=== PATIENT | female | born 1935 | race Two or more races ===

== ENCOUNTER 2019-12-10 11:06 | Outpatient (CLI) | payer MEDICARE, OTHER | END 2019-12-10 23:59 | disposition home or self-care (01) | LOC: CARD 11:06 | PROVIDERS: ATTEND Internal Medicine Interventional Cardiology | DX: I82.403 Acute embolism and thrombosis of unspecified deep veins of lower extremity, bilateral (principal); R60.0 Localized edema | CPT/HCPCS: 93970-TC ==

== ENCOUNTER 2020-03-28 18:57 | Inpatient (IN) | payer MEDICARE, OTHER ==
[~2020-03-28] VITALS: Ht 152.4 cm; Wt 57.6 kg
--- NOTE | 2020-03-28 19:04 | NUR ---
BIB From Home "told to come in for admission/Lung infection/empyemam, pt aaox4, -sob, nad noted, placed on monitor, vss, pending er provider beltran
[2020-03-28 19:24] LABS: BASOPHILS # (AUTO) 0.1 /CMM (0.0-0.2); BASOPHILS % (AUTO) 0.6 % (0.0-2.0); EOSINOPHILS % (AUTO) 0.3 % (0.0-6.0); HEMATOCRIT 39 % (33-45); HEMOGLOBIN 12.8 g/dL (11.5-14.8); LYMPHOCYTES # (AUTO) 1.2 /CMM (0.8-4.8); MEAN CORPUSCULAR HGB CONC 33 g/dl (31.0-36.0); MEAN CORPUSCULAR VOLUME 94 fL (82-100); MONOCYTES # (AUTO) 0.7 /CMM (0.1-1.30); MONOCYTES % (AUTO) 5.5 % (2.0-12.0); NEUTROPHILS # (AUTO) 10.9 /CMM (1.8-8.9); NEUTROPHILS % (AUTO) 84.6 % (43.0-81.0); PLATELET COUNT (AUTO) 462 /CMM (150-450); RED BLOOD CELL COUNT(AUTO) 4.15 MIL/uL (4.0-5.2); WHITE BLOOD COUNT (AUTO) 12.9 K/uL (4.3-11.0)
[2020-03-28] MEDS ORDERED: PIPERACILLIN /TAZOBACTAM 3.375 G in IV D5W 50 ML IV ONE (19:30)
[2020-03-28] MEDS ORDERED: VANCOMYCIN 1 GM in IV D5W 250 ML IV ONE (19:30)
[2020-03-28 19:50] LABS: CALCIUM, SERUM 9.2 mg/dL (8.5-10.1); CARBON DIOXIDE 26 mmol/L (21-32); CHLORIDE 101 mmol/L (98-107); GLUCOSE 117 mg/dL (74-106); SODIUM SERUM 138 mmol/L (136-145); UREA NITROGEN, BLOOD 22 mg/dL (7-18)
[2020-03-28 19:53] LABS: ALANINE AMINOTRANSFERASE 39 U/L (12-78); ALBUMIN 2.4 g/dL (3.4-5.0); ALKALINE PHOSPHATASE 119 U/L (46-116); ASPARTATE AMINOTRANSFERASE 47 U/L (15-37); BILIRUBIN,DIRECT 0.1 mg/dL (0.0-0.2); BILIRUBIN,TOTAL 0.5 mg/dL (0.2-1.0); TOTAL PROTEIN, SERUM 7.7 g/dL (6.4-8.2)
[2020-03-28] MEDS ORDERED: MORPHINE SULFATE INJ 2 MG/ML DISP.SYRIN IV ONE (20:00)
[2020-03-28] MEDS ORDERED: MORPHINE SULFATE INJ 4 MG/ML DISP.SYRIN ONE (20:00)
[2020-03-28] MEDS ORDERED: LEVO25TA7 PO (20:30)
[2020-03-28] MEDS ORDERED: PANT40TA2 PO (20:30)
[2020-03-28] MEDS ORDERED: ZOLP10TA2 PO (20:30)
[2020-03-28] MEDS ORDERED: FOLI0.4T2 PO (20:30)
[2020-03-28] MEDS ORDERED: PALB75CA PO (20:30)
[2020-03-28] MEDS ORDERED: ANAS1TAB50 NG (20:30)
[2020-03-28] MEDS ORDERED: AMLO5TAB4 PO (20:30)
[2020-03-28] MEDS ORDERED: PREG50CA PO (20:30)
[2020-03-28] MEDS ORDERED: METO100T14 PO (20:30)
[2020-03-28] MEDS ORDERED: BUPR100T6 PO (20:30)
--- NOTE | 2020-03-28 21:10 | NUR ---
pt is allergic to cephalaxin, called to verify, unknown reaction. per dr. wilfredo banks to give and watch for any allergic rxn
--- NOTE | 2020-03-28 21:15 | NUR ---
report given to jesus tello charge nurse for liza; pt will be transported to 3rd floor
[2020-03-28] MEDS ORDERED: PIPERACILLIN /TAZOBACTAM 3.375 G VIAL IV ONE (21:17)
--- NOTE | 2020-03-28 21:41 | NUR ---
pt tranpsorted to 3rd floor
[2020-03-28 21:45] VITALS: BP 148/72
--- NOTE | 2020-03-28 23:01 | NUR ---
MS/TELE/RN DR. LIMON CALLED, ADMISSION ORDERS RECEIVED. CARRIED OUT.
[2020-03-28] MEDS ORDERED: LEVOFLOXACIN 500 MG /D5W 100ML 500 MG in PREMIX 1 EA IV ONE (23:30)
[2020-03-28] MEDS ORDERED: LEVOFLOXACIN 500 MG /D5W 100ML 500 MG in PREMIX 1 EA IV SCH (23:30)
--- NOTE | 2020-03-29 00:29 | NUR ---
MS/TELE/RN RECEIVED PATIENT FROM [facility] BY VI AT AROUND 3905. PATIENT WAS AWAKE, ALERT, ORIENTED, COMFORTABLE, NO SIGNS OF DISTRESS NOTED. PATIENT IS VERY HARD OF HEARING, UNABLE TO OBTAIN INFORMATION. ADMISSION INFORMATION WAS TAKEN FROM THE ER NOTES AND CHART OF THE PATIENT. MADE PATIENT COMFORTABLE IN BED, PHYSICAL ASSESSMENT WAS DONE, PHOTOS WERE TAKEN AND PUT IN CHART. FALL PRECAUTIONS PER PROTOCOL INSTITUTED. WILL MONITOR.
[2020-03-29] MEDS ORDERED: LEVOFLOXACIN 500 MG /D5W 100ML 100 ML IV ONE (00:56)
--- NOTE | 2020-03-29 03:36 | NUR ---
MS/TELE/RN PATIENT IS SLEEPING AT THIS TIME, APPEAR COMFORTABLE, NO SIGNS OF DISTRESS NOTED, CALL LIGHT IN REACH. WILL CONTINUE TO MONITOR.
--- NOTE | 2020-03-29 05:55 | NUR ---
MS/TELE/RN PATIENT IS STILL SLEEPING, APPEAR COMFORTABLE, NO SIGNS OF DISTRESS NOTED, CALL LIGHT IN REACH, ALL NEEDS ATTENDED AT THIS TIME, WILL CONTINUE TO MONITOR.
[2020-03-29 06:44] LABS: BASOPHILS % (AUTO) 0.1 % (0.0-2.0); EOSINOPHILS % (AUTO) 0.3 % (0.0-6.0); HEMATOCRIT 36 % (33-45); LYMPHOCYTES # (AUTO) 0.9 /CMM (0.8-4.8); LYMPHOCYTES % (AUTO) 8.4 % (20.0-44.0); MEAN CORPUSCULAR HGB CONC 33 g/dl (31.0-36.0); MEAN CORPUSCULAR VOLUME 95 fL (82-100); MONOCYTES # (AUTO) 0.8 /CMM (0.1-1.30); MONOCYTES % (AUTO) 7.8 % (2.0-12.0); NEUTROPHILS # (AUTO) 8.5 /CMM (1.8-8.9); NEUTROPHILS % (AUTO) 83.4 % (43.0-81.0); PLATELET COUNT (AUTO) 350 /CMM (150-450); RED BLOOD CELL COUNT(AUTO) 3.83 MIL/uL (4.0-5.2); WHITE BLOOD COUNT (AUTO) 10.2 K/uL (4.3-11.0)
[2020-03-29 06:54] LABS: CALCIUM, SERUM 8.4 mg/dL (8.5-10.1); CREATININE 0.8 mg/dL (0.6-1.3); POTASSIUM 3.7 mmol/L (3.5-5.1)
--- NOTE | 2020-03-29 07:20 | NUR ---
ms rn received on bed, awake,alert,oriented x4,not in any form of distress, respirations even and ulabored,no sob noted.denies pain at thistime
[2020-03-29] MEDS: LEVOTHYROXINE SODIUM 50 MCG TABLET PO SCH (08:30)
--- NOTE | 2020-03-29 08:45 | NUR ---
ms rn was seen by dr. umaña w/ order made and carried out.
[2020-03-29] MEDS: FOLIC ACID 1 MG TABLET PO SCH (09:00)
[2020-03-29] MEDS: PANTOPRAZOLE 40 MG TABLET.DR PO SCH (09:00)
[2020-03-29] MEDS: PREGABALIN 25 MG CAPSULE PO SCH ×3 (09:00→18:11)
[2020-03-29] MEDS: AMLODIPINE BESYLATE 5 MG TABLET PO SCH (09:00)
[2020-03-29] MEDS: METOPROLOL TARTRATE 50 MG TABLET PO SCH ×2 (09:00→21:59)
[2020-03-29] MEDS: buPROPion SR 150 MG TABLET.ER PO SCH (09:00)
[2020-03-29] MEDS: ANASTROZOLE 1 MG TABLET PO SCH (09:00)
--- NOTE | 2020-03-29 09:00 | NUR ---
ms rn npo ,held meds at this time, patient will be having us guided thoracentesis today.
[2020-03-29] MEDS ORDERED: FEE PK DOSING 1 MIN EA MC ONE (09:43)
--- NOTE | 2020-03-29 10:00 | NUR ---
ms rn was seen by dr. tesfaye,all needs attended.
--- NOTE | 2020-03-29 10:13 | NUR ---
WOUND CARE CONSULT: PT REFUSED SKIN ASSESSMENT BUT ALLOWED ASSESSMENT OF FEET ONLY. RT FOOT NOTED TO HAVE DUSKY COLOR WITH PURPLE DISCOLORATION TO RT LATERAL ANKLE WITH EDEMA. LEFT FOOT HAS SLIGHT DUSKY COLOR WITH PLANTAR CALLUS, PRESENT ON ADMISSION. CURRENT RADHA SCORE IS 15. RECOMMENDATIONS MADE FOR SKIN PROTECTION AND DISCUSSED WITH NURSING STAFF. WILL SEE PRN. TUCKER IN AGREEMENT WITH PLAN OF CARE.
[2020-03-29] MEDS ORDERED: Z GUARD REMEDY 2 OZ OINT TP PRN (10:30)
[2020-03-29] MEDS: Z GUARD REMEDY 2 OZ OINT TP SCH (10:30)
[2020-03-29] MEDS: MORPHINE SULFATE INJ 4 MG/ML DISP.SYRIN IV PRN (11:07)
--- NOTE | 2020-03-29 12:00 | NUR ---
ms rn thoracentesis done w/ only 40ml taken.
[2020-03-29] MEDS: VANCOMYCIN 1 GM in IV D5W 250 ML IV SCH (15:22)
[2020-03-29 16:00] VITALS: BP 130/70
[2020-03-29] MEDS: ZOLPIDEM TARTRATE 10 MG TABLET PO SCH (18:11)
--- NOTE | 2020-03-29 18:48 | NUR ---
ms rn on bed, no distress noted.
--- NOTE | 2020-03-29 19:47 | NUR ---
ms procedures nurse initial notes received report from am nurse and checked pt she is sleeping at this time per am nurse Imelda she already given the sleep meds for tonight as schedule. Respiration even and non-labored not in any distress noted. Heplock patent and intact. kept her warm and comfortable at all times. place call light at reach. will continue monitoring.
[2020-03-29 20:00] VITALS: BP 129/81
[2020-03-29] MEDS: LEVOFLOXACIN 250 MG /D5W 50 ML 250 MG in PREMIX 1 EA IV SCH (23:08)
[2020-03-30] VITALS (7 sets, daily range): BP systolic 89–99; BP diastolic 47–68
[2020-03-30] MEDS: MORPHINE SULFATE INJ 4 MG/ML DISP.SYRIN IV PRN ×3 (01:21→18:40)
--- NOTE | 2020-03-30 01:21 | NUR ---
MS RN NOTES PAIN MANAGEMENT C/O GENERALIZED ARTHRITIS PAIN 10/10 ON PAIN SCALE.MEDICATED WITH MORPHINE 4MG IV ORDERED FOR SEVERE PAIN.WILL MONITOR FOR RELIEF
--- NOTE | 2020-03-30 06:44 | NUR ---
MS RN NOTES PAIN MANAGEMENT C/O GENERALIZED PAIN DUE TO ARTHRITIS 06/12 ON PAIN SCALE THIS TIME.MEDICATED WITH MORPHINE 4MG IV ORDERED AND PER PATIENT REQUEST.
[2020-03-30 06:51] LABS: CALCIUM, SERUM 8.8 mg/dL (8.5-10.1); CARBON DIOXIDE 21 mmol/L (21-32); CHLORIDE 98 mmol/L (98-107); CREATININE 1.5 mg/dL (0.6-1.3); GLUCOSE 132 mg/dL (74-106); POTASSIUM 4.1 mmol/L (3.5-5.1); SODIUM SERUM 133 mmol/L (136-145); UREA NITROGEN, BLOOD 20 mg/dL (7-18)
[2020-03-30] MEDS: LEVOTHYROXINE SODIUM 50 MCG TABLET PO SCH (06:55)
--- NOTE | 2020-03-30 06:56 | NUR ---
ms brian clssukhi notes morphine given zena IVP by another nurse as ordered per pt requested for her generalize pain 08/12. .stable zena the night and slept well. no signs of any distress noted. all due meds given . still waiting for vanco trough result. endorse to am nurse for continuity of care. will continue monitoring. place call light at reach.
--- NOTE | 2020-03-30 08:00 | NUR ---
MS RN OPENING NOTES Received Patient awake and resting in bed. A/O x 4. VS stable with no acute distress. Breathing even and unlabored on 3LPM via NC with no respiratory distress. Patient stated tolerable mild pain on thoracentesis site. Provided comfort measures. 20g PIV on RAC clean, intact, patent and flushing well. Safety precautions in place. Bed locked and set to lowest position with side rails x 2 up. All needs rendered at this time. Call light within reach. Will continue to monitor.
[2020-03-30] MEDS: ANASTROZOLE 1 MG TABLET PO SCH (08:38)
[2020-03-30] MEDS: FOLIC ACID 1 MG TABLET PO SCH (08:38)
[2020-03-30] MEDS: METOPROLOL TARTRATE 50 MG TABLET PO SCH ×2 (08:39→21:00)
[2020-03-30] MEDS: PANTOPRAZOLE 40 MG TABLET.DR PO SCH (08:39)
[2020-03-30] MEDS: PREGABALIN 25 MG CAPSULE PO SCH ×3 (08:39→16:39)
[2020-03-30] MEDS: AMLODIPINE BESYLATE 5 MG TABLET PO SCH (08:39)
[2020-03-30] MEDS: buPROPion SR 150 MG TABLET.ER PO SCH (08:39)
[2020-03-30] MEDS: Z GUARD REMEDY 2 OZ OINT TP SCH (08:41)
[2020-03-30] MEDS: VANCOMYCIN 1 GM in IV D5W 250 ML IV SCH (08:59)
[2020-03-30] MEDS: TRAMADOL HCL 50 MG TABLET PO PRN (16:40)
--- NOTE | 2020-03-30 17:15 | NUR ---
MS RN NOTES Obtained Pleural Fluid Lab results from [facility] in [facility] Medical Records. Per Cait TUCKER request, notified Cait TUCKER of lab results at this time. Placed lab results in chart. Patient in stable condition. Will continue to monitor.
--- NOTE | 2020-03-30 18:24 | NUR ---
MS RN CLOSING NOTES Patient resting in bed. A/O x 3. VS stable with no acute distress. Breathing even and unlabored on 3LPM via NC with no respiratory distress. Patient stated generalized moderate pain. Provided comfort measures. Will endorse to oncoming shift. 20g PIV on RAC clean, intact, patent and flushing well. Safety precautions in place. Bed locked and set to lowest position with side rails x 2 up. All needs rendered at this time. Call light within reach. Will endorse plan of care to oncoming shift.
[2020-03-30] MEDS: ZOLPIDEM TARTRATE 10 MG TABLET PO SCH ×2 (19:02→21:23)
--- NOTE | 2020-03-30 20:55 | NUR ---
RN NOTES: PAGED [facility] REGARDING PT'S LOW BP, DR BEJARANO BEER MERCHANT, AWAITING FOR CALL BACK
--- NOTE | 2020-03-30 21:00 | NUR ---
RN NOTES: PT A/O X3 (ABLE TO STATE HER NAME, AND WHERE SHE IS), HOWEVER UNABLE TO RECALL MONTH DAY AND YEAR. ON 3L OXYGEN VIA NC.
--- NOTE | 2020-03-30 21:19 | NUR ---
RN NOTES/NEPHRO MD RETURN CALL: SPOKE WITH DR BEJARANO, RELAYED SITUATION,LOW BP, MANUAL BP HIGHEST OBTAIN IS 91/58 HR 74, PER MD TELEPHONE ORDER RECEIVE TO GIVE 500ML NORMAL SALINE BOLUS, HOLD LOPRESSOR DOSE DUE TO DECREASE BLOOD PRESSURE, PARAMETER FOR LOPRESSOR HOLD FOR SBP <105, INFORMED MD PT INSISTING TO GET HER SLEEPING PILL/AMBIEN, PER MD DO NOT GIVE AMBIEN TONIGHT. ALL ORDERS READ BACK VERIFIED AND CARRIED OUT.
[2020-03-30] MEDS ORDERED: IV NS 0.9% 500 ML IV ONE (21:30)
--- NOTE | 2020-03-30 22:46 | NUR ---
rn notes/post bolus vs: attached latest vs post bolus, pt a/o x3, remains on 3l oxygen via nc, respiration even and unlabored, provided with cranberry juice and pudding, will recheck vs again in an hour Addendum: 03/30/20 at 2247 by JOSELYN BIRMINGHAM RN Amended: Links added.
[2020-03-30] MEDS: LEVOFLOXACIN 250 MG /D5W 50 ML 250 MG in PREMIX 1 EA IV SCH (22:51)
[2020-03-31] VITALS: BP 102/54
--- NOTE | 2020-03-31 | NUR ---
rn notes/vs 1hr post bolus: attached pt's latest vs, pt responsive, a/o x3, remains on 3L oxygen via nc respirations even and unlabored, iv access remains patent and flushing well, on hl, pt denies any head ache, dizziness, or light headedness, denies any discomfort at this time, will continue monitoring pt. Addendum: 03/31/20 at 5874 by JOSELYN BIRMINGHAM RN Amended: Links added.
--- NOTE | 2020-03-31 06:44 | NUR ---
end of shift report: received report form karlos tello last night at 192. s/p thoracentesis on 03/29. pt remains a/o x3 (able to state name, and place where she is), remains on 3l oxygen via nc spo2 ranging 92-94%. iv access remains patent and flushing well, on hl, no s/s of iv infiltration noted. ble kept offloaded on pillows, no scd applied as pt noted to have ble edema +2. Lopressor scheduled at 2100 was held by md due to low bp, also Ambien held per md order. pt received 500ml ns bolus for managing hypotension. result of fluid analysis from [facility] relayed to dr umaña by day rn yesterday. am care and complete linen change provided to pt. vs remains stable, needs attended, safety precautions for fall remains engaged, call light in reach, will endorse to day rn Immaculate for continuity of care.
[2020-03-31 06:52] LABS: CALCIUM, SERUM 8.3 mg/dL (8.5-10.1); CARBON DIOXIDE 22 mmol/L (21-32); CHLORIDE 97 mmol/L (98-107); GLUCOSE 98 mg/dL (74-106); POTASSIUM 4.3 mmol/L (3.5-5.1); SODIUM SERUM 130 mmol/L (136-145); UREA NITROGEN, BLOOD 28 mg/dL (7-18)
--- NOTE | 2020-03-31 06:56 | NUR ---
rn notes: medication ambien 10mg tab returned to [facility], cosigned/witnessed by omer smallwood. (the said medication was pulled out by omer everett from day shift, but not administered at night as dose was held by md due to low bp, spoked with pharmacist how to return it as med was not pulled pout under my name, per pharm okay to return it as long they as there is another rn as witness.
--- NOTE | 2020-03-31 07:05 | NUR ---
MS RN OPENING NOTES RECEIVED PT IN BED AWAKE AT THIS TIME, AOX3. NO SOB NOTED, NO S/S OF ANY ACUTE DISTRESS NOTED AT THIS TIME, NO C/O PAIN. PT ON 3LPM O2 VIA NC. RESPIRATIONS EVEN AND UNLABORED WITH EQUAL RISE AND FALL IN CHEST. IV ACCESS TO LFA G#22, INTACT AND PATENT. BLE +2 NOTED. SAFETY MEASURES IN PLACE, BED IN LOWEST LOCKED POSITION, HOB ELEVATED TO SEMI FOWLERS POSITION, SIDE RAILS UP, CALL LIGHT WITHIN REACH. WILL CONTINUE TO MONITOR
[2020-03-31 08:00] VITALS: BP 86/46
[2020-03-31] MEDS ORDERED: VANCOMYCIN 1 GM in IV D5W 250 ML IV SCH (08:00)
[2020-03-31] MEDS: LEVOTHYROXINE SODIUM 50 MCG TABLET PO SCH (08:24)
--- NOTE | 2020-03-31 08:29 | NUR ---
PT HAS VANCOMYCIN 1GM IV Q24HRS SCHEDULED AT THIS TIME, PT VANCO TROUGH LEVEL IS 20 OF 03/30/20. BRYCE FROM PHARMACY WAS MADE AWARE, PER BRYCE, HOLD VANCO FOR NOW.
--- NOTE | 2020-03-31 08:33 | NUR ---
PT HAS VANCOMYCIN 1GM IV Q24HRS SCHEDULED AT THIS TIME, PT VANCO TROUGH LEVEL IS 20 OF 03/30/20. BRYCE FROM PHARMACY WAS MADE AWARE, PER BRYCE, HOLD VANCO FOR NOW. ORDERS CARRIED OUT. WILL CONTINUE TO MONITOR
[2020-03-31] MEDS: PANTOPRAZOLE 40 MG TABLET.DR PO SCH (08:39)
[2020-03-31] MEDS: PREGABALIN 25 MG CAPSULE PO SCH ×3 (08:39→16:57)
[2020-03-31] MEDS: FOLIC ACID 1 MG TABLET PO SCH (08:39)
[2020-03-31] MEDS: buPROPion SR 150 MG TABLET.ER PO SCH (08:39)
[2020-03-31] MEDS: METOPROLOL TARTRATE 50 MG TABLET PO SCH (08:45)
[2020-03-31] MEDS: ANASTROZOLE 1 MG TABLET PO SCH (08:45)
[2020-03-31] MEDS: Z GUARD REMEDY 2 OZ OINT TP SCH (08:46)
[2020-03-31] MEDS: AMLODIPINE BESYLATE 5 MG TABLET PO SCH (08:46)
--- NOTE | 2020-03-31 09:00 | NUR ---
PT SODIUM LEVEL IS 130, BP 86/[address] BRIECNO MADE AWARE. NO NEW ORDERS AT THIS TIME. WILL CONTINUE TO MONITOR
--- NOTE | 2020-03-31 10:28 | NUR ---
ABA, MAPLE SUGAR MAKER REQUESTED THAT PT'S FAMILY BRING IN HOME MEDICATION (IBRANCE 75MG PO DAILY). WAS MADE AWARE AT THIS TIME AND WILL BE BRINGING IN MEDICATION BY 1700PM. WILL CONTINUE CARE
--- NOTE | 2020-03-31 11:20 | NUR ---
PT C/O O NAUSEA AT THIS TIME. DR BEJARANO MADE AWARE. NO NEW ORDERS AT THIS TIME, WILL CONTINUE TO MONITOR
[2020-03-31 11:57] LABS: BASOPHILS % (AUTO) 0.3 % (0.0-2.0); EOSINOPHILS % (AUTO) 0.2 % (0.0-6.0); HEMATOCRIT 33 % (33-45); HEMOGLOBIN 10.8 g/dL (11.5-14.8); LYMPHOCYTES # (AUTO) 0.9 /CMM (0.8-4.8); LYMPHOCYTES % (AUTO) 10.1 % (20.0-44.0); MEAN CORPUSCULAR HGB CONC 33 g/dl (31.0-36.0); MEAN CORPUSCULAR VOLUME 95 fL (82-100); MONOCYTES # (AUTO) 0.6 /CMM (0.1-1.30); MONOCYTES % (AUTO) 6.5 % (2.0-12.0); NEUTROPHILS # (AUTO) 7.7 /CMM (1.8-8.9); NEUTROPHILS % (AUTO) 82.9 % (43.0-81.0); PLATELET COUNT (AUTO) 426 /CMM (150-450); RED BLOOD CELL COUNT(AUTO) 3.48 MIL/uL (4.0-5.2); WHITE BLOOD COUNT (AUTO) 9.3 K/uL (4.3-11.0)
[2020-03-31] MEDS ORDERED: ONDANSETRON HCL/PF 4 MG/2 ML VIAL IVP PRN (12:00)
[2020-03-31 12:05] LABS: MAGNESIUM 2.1 mg/dL (1.8-2.4); PHOSPHORUS 3.9 mg/dL (2.5-4.9)
[2020-03-31 12:16] LABS: THYROID STIMULATING HORMONE 3.723 uIU/mL (0.358-3.74); URIC ACID 6.6 mg/dL (2.6-7.2)
[2020-03-31] MEDS: IV NS 0.9% 1,000 ML IV PRN (13:28)
--- NOTE | 2020-03-31 13:50 | NUR ---
PATIENT'S BROUGHT IN PATIENT'S HOME MEDICATION IBRIANCE 75MG PO DAILY PER PHARMACY REQUEST. MEDICATION NOT IN ORIGINAL CONTAINER. MEDICATION HANDED TO BEAU, ASSOCIATE PRODUCT MANAGER. PER BEAU, SHE WILL VERIFY MEDICATION. CHARGE NURSE MOSHE, WAS MADE AWARE. PATIENT'S ALSO BROUGHT IN A COPY OF PATIENT'S DURABLE POWER OF INSURANCE ADJUSTER FILED IN PATIENT'S CHARGE. VENETIAN BLIND MACHINE OPERATOR AND CHARGE NURSE MADE AWARE. WILL CONTINUE WITH PLAN OF CARE.
[2020-03-31 16:00] VITALS: BP 102/64
[2020-03-31] MEDS: ZOLPIDEM TARTRATE 10 MG TABLET PO SCH (18:07)
--- NOTE | 2020-03-31 19:05 | NUR ---
MS RN CLOSING ING NOTES PT IN BED AWAKE AT THIS TIME. PT REMAINED STABLE THROUGHOUT SHIFT. PT KEPT CLEAN AND DRY. ALL CARE, MEDICATIONS AND TREATMENT PROVIDED ANTICIPATED AND PER ORDER. PT REPOSITION Q2HRS, PRN AND PER PROTOCOL. IV ACCESS TO LFA G#22 INTACT, PATENT AND RUNNING 0.9NS@100ML/HR. NO SOB NOTED, NO S/S OF ANY ACUTE DISTRESS NOTED AT THIS TIME. ASPIRATION AND SAFETY PRECAUTIONS IN PLACE, BED IN LOWEST LOCKED POSITION, HOB ELEVATED TO SEMI FOWLERS POSITION, SIDE RAILS UP, CALL LIGHT WITHIN REACH. WILL ENDORSE TO MOBILE TESTER NURSE FOR JUS
--- NOTE | 2020-03-31 19:15 | NUR ---
MS RN OPENING NOTES PATIENT SLEEPING IN BED, EASY TO AWAKEN. A/O X3. ON 3L NC. NO S/S OF SOB OR PAIN NOTED. IV PRESENT ON LEFT FA, SIZE 22, INTACT & PATENT, NS RUNNING AT 100 ML/HR. SAFETY MEASURES IN PLACE AND PATIENT'S NEEDS MET. BED LOCKED, ALARM ON, SIDE RAILS X2, CALL LIGHT WITHIN REACH. WILL CONTINUE TO MONITOR.
[2020-03-31 20:05] VITALS: BP 110/41
[2020-03-31] MEDS: LEVOFLOXACIN 250 MG /D5W 50 ML 250 MG in PREMIX 1 EA IV SCH (23:00)
--- NOTE | 2020-03-31 23:30 | NUR ---
MS RN NOTES CALLED [facility] REGARDING SCHEDULED IVPB LEVAQUIN AND PATIENT'S RENAL FUNCTION. PER PHARMACIST TECH, PATIENT'S CREATININE CLEARANCE IS <10 (9.67) AND RECOMMENDATION IS TO HOLD ANTIBIOTIC AND CHANGE FREQUENCY TO Q48H.
--- NOTE | 2020-03-31 23:48 | NUR ---
MS RN NOTES DR. BEJARANO CALLED AND MADE AWARE OF PHARMACY'S RECOMMENDATION REGARDING ANTIBIOTIC LEVAQUIN. PER CARLEE, OK TO HOLD MEDICATION TONIGHT AND CHANGE FREQUENCY TO Q48H. ALSO RECEIVED ORDERS FOR STRAIGHT CATH TO COLLECT URINE. ORDERS READ BACK AND VERIFIED.
--- NOTE | 2020-04-01 00:40 | NUR ---
MS RN NOTES STRAIGHT CATH PERFORMED ON PATIENT PER DR. BEJARANO'S ORDERS FOR URINALYSIS. 300 ML OF USAMA URINE COLLECTED.
[2020-04-01] MEDS: IV NS 0.9% 1,000 ML IV PRN ×2 (01:07→15:26)
[2020-04-01 05:22] LABS: CREATININE, URINE 130.8 MG/DL (30.0-125.0); URINE TOTAL PROTEIN 73.6 mg/dL (0-11.9)
[2020-04-01 06:41] LABS: BASOPHILS % (AUTO) 0.5 % (0.0-2.0); EOSINOPHILS % (AUTO) 0.2 % (0.0-6.0); HEMATOCRIT 30 % (33-45); HEMOGLOBIN 9.6 g/dL (11.5-14.8); LYMPHOCYTES # (AUTO) 1.1 /CMM (0.8-4.8); MEAN CORPUSCULAR HGB CONC 33 g/dl (31.0-36.0); MEAN CORPUSCULAR VOLUME 95 fL (82-100); MONOCYTES # (AUTO) 0.7 /CMM (0.1-1.30); MONOCYTES % (AUTO) 8.6 % (2.0-12.0); NEUTROPHILS # (AUTO) 6.5 /CMM (1.8-8.9); NEUTROPHILS % (AUTO) 77.7 % (43.0-81.0); PLATELET COUNT (AUTO) 368 /CMM (150-450); RED BLOOD CELL COUNT(AUTO) 3.11 MIL/uL (4.0-5.2); WHITE BLOOD COUNT (AUTO) 8.4 K/uL (4.3-11.0)
[2020-04-01 06:45] LABS: CREATINE KINASE, TOTAL 223 U/L (26-192)
[2020-04-01 06:54] LABS: CALCIUM, SERUM 7.4 mg/dL (8.5-10.1); CARBON DIOXIDE 25 mmol/L (21-32); CHLORIDE 101 mmol/L (98-107); CREATININE 4.1 mg/dL (0.6-1.3); GLUCOSE 128 mg/dL (74-106); POTASSIUM 4.3 mmol/L (3.5-5.1); SODIUM SERUM 136 mmol/L (136-145); UREA NITROGEN, BLOOD 34 mg/dL (7-18)
[2020-04-01] MEDS ORDERED: VANCOMYCIN 500 MG in IV D5W 100 ML IV SCH ×2 (07:00→20:00)
[2020-04-01 07:05] LABS: ALANINE AMINOTRANSFERASE 31 U/L (12-78); ALBUMIN 1.8 g/dL (3.4-5.0); ALKALINE PHOSPHATASE 90 U/L (46-116); ASPARTATE AMINOTRANSFERASE 43 U/L (15-37); BILIRUBIN,TOTAL 0.2 mg/dL (0.2-1.0); CALCIUM, SERUM 7.6 mg/dL (8.5-10.1); CARBON DIOXIDE 25 mmol/L (21-32); CHLORIDE 99 mmol/L (98-107); CREATININE 4.4 mg/dL (0.6-1.3); GLUCOSE 128 mg/dL (74-106); MAGNESIUM 1.9 mg/dL (1.8-2.4); PHOSPHORUS 4.9 mg/dL (2.5-4.9); POTASSIUM 4.2 mmol/L (3.5-5.1); SODIUM SERUM 134 mmol/L (136-145); TOTAL PROTEIN, SERUM 5.9 g/dL (6.4-8.2); UREA NITROGEN, BLOOD 35 mg/dL (7-18)
--- NOTE | 2020-04-01 07:26 | NUR ---
MS RN CLOSING NOTES PATIENT SLEEPING IN BED, EASY TO AWAKEN. A/O X3. ON 3L NC. NO S/S OF SOB OR PAIN NOTED. IV REMAINS INTACT & PATENT. SAFETY MEASURES IN PLACE AND PATIENT'S NEEDS MET. WILL ENDORSE TO DAY SHIFT NURSE PLAN OF CARE.
--- NOTE | 2020-04-01 07:53 | NUR ---
MS RN OPENING NOTES RECEIVED PATIENT IN BED, ASLEEP. PATIENT IS ON OXYGEN THERAPY AT 3 LPM VIA NASAL CANNULA; BREATHING IS EVEN AND UNLABORED; NO SOB NOTED AT THIS TIME. NO S/S OF PAIN SUCH MOANING, FACIAL GRIMACING OR GUARDING. LFA IV ACCESS G # 22 PRESENT AND INTACT INFUSING NS AT 100 MLS/HR. SAFETY PRECAUTIONS IN PLACE; BED IN LOW POSITION AND LOCKED, RAILS UP X2, CALL LIGHT WITHIN REACH.. WILL CONTINUE TO MONITOR PATIENT.
[2020-04-01 08:00] VITALS: BP 121/68
[2020-04-01] MEDS: LEVOTHYROXINE SODIUM 50 MCG TABLET PO SCH (09:20)
[2020-04-01] MEDS: PANTOPRAZOLE 40 MG TABLET.DR PO SCH (09:20)
[2020-04-01] MEDS: ANASTROZOLE 1 MG TABLET PO SCH (09:20)
[2020-04-01] MEDS: FOLIC ACID 1 MG TABLET PO SCH (09:20)
[2020-04-01] MEDS: PREGABALIN 25 MG CAPSULE PO SCH ×3 (09:20→17:31)
[2020-04-01] MEDS: buPROPion SR 150 MG TABLET.ER PO SCH (09:20)
[2020-04-01] MEDS: Z GUARD REMEDY 2 OZ OINT TP SCH (09:21)
[2020-04-01] MEDS: METOPROLOL TARTRATE 25 MG TABLET PO SCH ×3 (10:00→21:21)
[2020-04-01] MEDS: ENOXAPARIN SODIUM 30 MG/0.3 ML DISP.SYRIN SQ SCH (10:30)
--- NOTE | 2020-04-01 11:59 | NUR ---
MS RN NOTES PATIENT WANTS TO SEE HER DOCTORS AND RECEIVE A PLAN FROM THEM. ALSO SHE WANTS TO KNOW FROM THE DOCTOR WHY SHE IS BEING PRESCRIBED ENOXAPARIN EVEN AFTER TEACHING WAS PROVIDED. SHE IS NOT HAPPY THAT FOR A FEW DAYS NOW SHE HEARS SAME THINGS OVER AND OVER AGAIN.
[2020-04-01] MEDS: TRAMADOL HCL 50 MG TABLET PO PRN (15:23)
[2020-04-01 16:00] VITALS: BP 137/59
--- NOTE | 2020-04-01 16:24 | NUR ---
MS SLADE NOTES FURTHER PATIENT CARE HANDED OUT TO YANY BALDERRAMA. Addendum: 04/01/20 at 1625 by DREW BOURNE RN MS SLADE NOTES FURTHER PATIENT CARE HANDED OUT TO YANY JASSO.
[2020-04-01] MEDS ORDERED: LEVOFLOXACIN (500MG) 500 MG TABLET PO SCH (18:00)
--- NOTE | 2020-04-01 18:39 | NUR ---
MS RN NOTES PATIENT IN BED RESTING NO SOB OR ACUTE DISTRESS NOTED. ALL DUE MEDICATIONS ADMINISTERED. ALL NEEDS MET. NO ACUTE CHANGES NOTED. WILL ENDORSE CARE TO PM SHIFT.
--- NOTE | 2020-04-01 19:45 | NUR ---
MS RN NOTES RECEIVED ON BED,ON RIGHT SIDE POSITION,BREATHING REGULAR,NOT IN ANY FORM OF DISTRESS.O2 2LNC IN USED TO KEEP O2 SAT ABOVE 90%.IVF NS AT 100ML/HR RATE,SITE PATENT.PER REPORT,SHE ONLY VOIDED ONCE ON DIAPER,WITH SMALL AMOUNT OF URINE.BLADDER SCAN RENDERED AND THERE WAS ONLY 83ML OF URINE,BLADDER NON DISTENDED.REPOSITION PER PROTOCOL.CALL LIGHT IN REACH,NEEDS ANTICIPATED.
[2020-04-01 20:00] VITALS: BP 143/77
[2020-04-01 20:14] VITALS: BP 143/77
--- NOTE | 2020-04-01 21:00 | NUR ---
MS RN NOTES BP 143/77.PULSE-99,DOSE HELD PER MD ORDER,DOSE WASTED,ACCIDENTALLY OPENED.
[2020-04-01] MEDS ORDERED: LEVOFLOXACIN (250MG) 250 MG TABLET PO SCH (23:00)
[2020-04-02] MEDS: IV NS 0.9% 1,000 ML IV PRN (01:03)
--- NOTE | 2020-04-02 04:00 | NUR ---
MS RN NOTES NOTED BLADDER DISTENDED,BLADDER SCAN SHOWS 386 ML OF URINE IN THE BLADDER.PATIENT UNABLE TO VOID,C/O PAIN 5/10 OM PAIN SCALE.WILL MEDICATE.
[2020-04-02] MEDS: TRAMADOL HCL 50 MG TABLET PO PRN ×2 (04:47→16:22)
--- NOTE | 2020-04-02 04:47 | NUR ---
MS RN NOTES PAIN MANAGEMENT NEPHRO TOPPIECE CUTTER FOR DR BEJARANO,DR PUGH WAS PAGE.AWAITING TO CALL BACK
--- NOTE | 2020-04-02 05:00 | NUR ---
MS RN NOTES ST CATH DONE AND OBTAINED 400ML OF URINE
[2020-04-02 06:22] LABS: BASOPHILS % (AUTO) 0.1 % (0.0-2.0); EOSINOPHILS % (AUTO) 0.2 % (0.0-6.0); HEMATOCRIT 30 % (33-45); HEMOGLOBIN 9.8 g/dL (11.5-14.8); LYMPHOCYTES # (AUTO) 0.5 /CMM (0.8-4.8); LYMPHOCYTES % (AUTO) 7.5 % (20.0-44.0); MEAN CORPUSCULAR HGB CONC 33 g/dl (31.0-36.0); MEAN CORPUSCULAR VOLUME 95 fL (82-100); MONOCYTES # (AUTO) 0.6 /CMM (0.1-1.30); MONOCYTES % (AUTO) 8.3 % (2.0-12.0); NEUTROPHILS % (AUTO) 83.9 % (43.0-81.0); PLATELET COUNT (AUTO) 385 /CMM (150-450); RED BLOOD CELL COUNT(AUTO) 3.15 MIL/uL (4.0-5.2); WHITE BLOOD COUNT (AUTO) 7.1 K/uL (4.3-11.0)
--- NOTE | 2020-04-02 06:30 | NUR ---
MS RN NOTES ON BED, A/O X 2-3.PAIN MANAGEMENT EFFECTIVE.REPOSITION PER PROTOCOL.VITAL SIGNS STABLE.IN NO ACUTE DISTRESS.WILL ENDORSE TO DAY NURSE FOR JUS.
[2020-04-02 06:41] LABS: CALCIUM, SERUM 7.4 mg/dL (8.5-10.1); CARBON DIOXIDE 22 mmol/L (21-32); CHLORIDE 100 mmol/L (98-107); CREATININE 4.9 mg/dL (0.6-1.3); GLUCOSE 90 mg/dL (74-106); MAGNESIUM 1.9 mg/dL (1.8-2.4); PHOSPHORUS 5.6 mg/dL (2.5-4.9); POTASSIUM 4.9 mmol/L (3.5-5.1); SODIUM SERUM 134 mmol/L (136-145); UREA NITROGEN, BLOOD 40 mg/dL (7-18)
[2020-04-02 08:00] VITALS: BP 124/72
[2020-04-02] MEDS: PREGABALIN 25 MG CAPSULE PO SCH ×3 (08:08→16:15)
[2020-04-02] MEDS: LEVOTHYROXINE SODIUM 50 MCG TABLET PO SCH (08:08)
[2020-04-02] MEDS: ANASTROZOLE 1 MG TABLET PO SCH (08:08)
[2020-04-02] MEDS: FOLIC ACID 1 MG TABLET PO SCH (08:08)
[2020-04-02] MEDS: PANTOPRAZOLE 40 MG TABLET.DR PO SCH (08:08)
[2020-04-02] MEDS: buPROPion SR 150 MG TABLET.ER PO SCH (08:09)
[2020-04-02] MEDS: METOPROLOL TARTRATE 25 MG TABLET PO SCH ×3 (08:30→18:00)
[2020-04-02] MEDS: ENOXAPARIN SODIUM 30 MG/0.3 ML DISP.SYRIN SQ SCH (08:31)
[2020-04-02] MEDS: Z GUARD REMEDY 2 OZ OINT TP SCH (09:24)
--- NOTE | 2020-04-02 11:31 | NUR ---
RN NOTE Patient straight cathed, 100cc out. Urine sample sent to lab.
--- NOTE | 2020-04-02 12:20 | NUR ---
RN NOTE METOPROLOL held per .
[2020-04-02 12:34] LABS: APPEARANCE,URINE CLEAR (CLEAR); BILIRUBIN,URINE NEGATIVE (NEGATIVE); BLOOD, URINE TRACE-INTA Ery/uL (NEGATIVE); COLOR,URINE YELLOW (YELLOW); KETONES,URINE NEGATIVE (NEGATIVE); LEUKOCYTE ESTERASE ,URINE NEGATIVE (NEGATIVE); NITRITE, URINE NEGATIVE (NEGATIVE); PROTEIN,URINE NEGATIVE (NEGATIVE); UGLUCOSE NEGATIVE (NEGATIVE); UROBILINOGEN,URINE 0.2 EU/dL (0.2)
[2020-04-02 12:54] LABS: EOSINOPHIL,URINE None Seen
[2020-04-02 16:00] VITALS: BP 123/65
--- NOTE | 2020-04-02 19:57 | NUR ---
RN CLOSING NOTE Patient is resting in bed, A/O x2-3 showing no signs of acute distress or SOB, saturaing >95% on 3L NC. Patient has no IV line. paged, awaiting for response. Denies any c/o pain nor discomfort at this time. Bed in lowest position, locked. Bed alarm on. Call light within reach. In no apparent distress.
--- NOTE | 2020-04-02 19:58 | NUR ---
RN NOTES PATIENT RESTING COMFORTABLY IN BED. 3L/MIN VIA NC. NO S/S OF ACUTE RESPIRATORY DISTRESS. DENIES ANY C/O PAIN NOR DISCOMFORT AT THIS TIME. BED IN LOWEST POSITION, LOCKED. BED ALARM ON. CALL LIGHT WITHIN REACH. IN NO APPARENT DISTRESS. SAFETY MEASURES IN PLACE. NO IV ACCESS AT THIS TIME. WILL CALL DR. MIKE BEJARANO TO OBTAIN ORDER FOR MIDLINE INSERTION. ALL NEEDS ANTICIPATED WILL CONTINUE TO MONITOR ACCORDINGLY.
--- NOTE | 2020-04-02 20:10 | NUR ---
MS RN NOTES Awaiting for MD call back for IV access order due to multiple attempts unsuccessful. Endorsed to oncoming shift.
[2020-04-02 20:24] VITALS: BP 120/71
--- NOTE | 2020-04-02 20:32 | NUR ---
RN NOTE Paged [facility] for midline orders. Awaiting for call back. Will endorse to retail shift manager.
[2020-04-02 20:45] VITALS: BP 120/71
--- NOTE | 2020-04-02 21:40 | NUR ---
RN NOTES OK TO INSERT MIDLINE PER DR. JOSETTE PUGH MD. NURSING SUPERVISORY AIR INTERCEPT CONTROLLER JANICE AWARE, NO DEFINITE TIME WHEN PICC NURSE WILL ARRIVE. WILL MONITOR.
[2020-04-03] MEDS: METOPROLOL TARTRATE 25 MG TABLET PO SCH ×5 (00:39→23:49)
[2020-04-03] MEDS: TRAMADOL HCL 50 MG TABLET PO PRN ×2 (02:05→09:20)
[2020-04-03 06:10] LABS: BASOPHILS % (AUTO) 0.4 % (0.0-2.0); EOSINOPHILS % (AUTO) 0.4 % (0.0-6.0); HEMATOCRIT 30 % (33-45); HEMOGLOBIN 9.7 g/dL (11.5-14.8); LYMPHOCYTES # (AUTO) 0.7 /CMM (0.8-4.8); LYMPHOCYTES % (AUTO) 11.2 % (20.0-44.0); MEAN CORPUSCULAR HGB CONC 33 g/dl (31.0-36.0); MEAN CORPUSCULAR VOLUME 95 fL (82-100); MONOCYTES # (AUTO) 0.5 /CMM (0.1-1.30); NEUTROPHILS # (AUTO) 4.9 /CMM (1.8-8.9); PLATELET COUNT (AUTO) 358 /CMM (150-450); RED BLOOD CELL COUNT(AUTO) 3.11 MIL/uL (4.0-5.2); WHITE BLOOD COUNT (AUTO) 6.1 K/uL (4.3-11.0)
[2020-04-03 06:15] LABS: CALCIUM, SERUM 7.8 mg/dL (8.5-10.1); CARBON DIOXIDE 23 mmol/L (21-32); CHLORIDE 98 mmol/L (98-107); CREATININE 6.1 mg/dL (0.6-1.3); GLUCOSE 105 mg/dL (74-106); POTASSIUM 5.3 mmol/L (3.5-5.1); SODIUM SERUM 131 mmol/L (136-145); UREA NITROGEN, BLOOD 46 mg/dL (7-18)
--- NOTE | 2020-04-03 06:26 | NUR ---
RN NOTES ALL NEEDS ATTENDED AND MET,ABLE TO REST AND SLEPT AT INTERVALS, PATIENT DID NOT COMPLAIN OF DISTENDED BLADDER, REFUSED STRAIGHT CATH AT THIS TIME, ASSESSED, DIAPER SLIGHTLY WET. REPOSITIONED FOR COMFORT METOPROLOL GIVEN SCHEDULED, BP 123/70, HR 85. ALL NEEDS ANTICIPATED, NO IV ACCESS WILL ENDORSE TO AM NURSE FOR CONTINUITY OF CARE AND FOLLOW UP MIDLINE INSERTION. PATIENT IS RESTING COMFORTABLY AT THIS TIME.
[2020-04-03 07:08] LABS: PTH, INTACT 211 pg/mL (15-65)
--- NOTE | 2020-04-03 07:28 | NUR ---
MS RN OPENING NOTES RECEIVED PATIENT IN BED, AWAKE, A/O X3. PATIENT IS ON OXYGEN THERAPY AT 3LPM; BREATHING IS EVEN AND UNLABORED; NO SOB PRESENT AT THIS TIME. NO COMPLAINS OF PAIN. PATIENT IS MISSING IV ACCESS. PER MOTOR SCOOTER MECHANIC NURSE AWAITING MIDLINE INCRETION. PER PATIENT MULTIPLE ATTEMPTS HAVE BEEN DONE AND SHE JUST REFUSED ANY MORE ATTEMPTS FOR PERIPHERAL IV. ARMS WITH MULTIPLE BRUISES. SAFETY PRECAUTIONS IN PLACE; BED IN LOW POSITION AND LOCKED, RAILS UP X2, CALL LIGHT WITHIN REACH. WILL CONTINUE TO MONITOR PATIENT.
[2020-04-03] MEDS ORDERED: VANCOMYCIN 500 MG in IV D5W 100 ML IV SCH (08:00)
[2020-04-03] MEDS: PANTOPRAZOLE 40 MG TABLET.DR PO SCH (08:50)
[2020-04-03] MEDS: PREGABALIN 25 MG CAPSULE PO SCH ×3 (08:50→17:51)
[2020-04-03] MEDS: LEVOTHYROXINE SODIUM 50 MCG TABLET PO SCH (08:50)
[2020-04-03] MEDS: FOLIC ACID 1 MG TABLET PO SCH (08:51)
[2020-04-03] MEDS: buPROPion SR 150 MG TABLET.ER PO SCH (08:51)
[2020-04-03] MEDS: ANASTROZOLE 1 MG TABLET PO SCH (08:52)
[2020-04-03] MEDS: Z GUARD REMEDY 2 OZ OINT TP SCH (08:52)
[2020-04-03] MEDS: ENOXAPARIN SODIUM 30 MG/0.3 ML DISP.SYRIN SQ SCH (09:00)
[2020-04-03 09:08] VITALS: BP 116/56
--- NOTE | 2020-04-03 09:59 | NUR ---
MS RN NOTES PATIENT STATES DIFFICULTY BREATHING. O2 INCREASED TO 5 LPM VIA NASAL CANNULA, SATURATING AT 92%. CHARGE NURSE AND MD NOTIFIED. WILL CONTINUE TO MONITOR.
[2020-04-03] MEDS ORDERED: VANCOMYCIN 500 MG in IV D5W 100 ML IV PRN (11:00)
[2020-04-03] MEDS: HEPARIN SODIUM, PORCINE 5000 UNITS/1 ML VIAL SQ SCH (16:30)
--- NOTE | 2020-04-03 16:31 | NUR ---
MS RN NOTES PATIENT JUST HAD AN HD CATH PLACED. SKIPPING THE DOSE DUE TO FRESH HD INSERTION. WILL CONTINUE TO MONITOR.
[2020-04-03 16:58] VITALS: BP 110/46
--- NOTE | 2020-04-03 18:50 | NUR ---
MS RN CLOSING NOTES PATIENT IN BED, ASLEEP. PATIENT IS ON OXYGEN THERAPY AT 5LPM; BREATHING IS EVEN AND UNLABORED; NO SOB PRESENT AT THIS TIME. NO COMPLAINS OF PAIN AT THE MOMENT. THROUGHOUT THE DAY PAIN TREATED WITH PRN MEDICATION. PATIENT IS MISSING IV ACCESS; STILL AWAITING MIDLINE INSERTION. PATIENT HAD AN HD CATH INSERTED TODAY FOR HEMODIALYSIS. ALL NEEDS ATTENDED TO THROUGHOUT THE DAY. SAFETY PRECAUTIONS REMAIN IN PLACE; BED IN LOW POSITION AND LOCKED, RAILS UP X2, CALL LIGHT WITHIN REACH. WILL ENDORSE TO ELECTRIC MOTORMAN NURSE.
[2020-04-03 20:00] VITALS: BP 126/62
--- NOTE | 2020-04-03 20:00 | NUR ---
MS/RN OPENING NOTES RECEIVED PATIENT IN BED, RESTING COMFORTABLY, ON OXYGEN VIA NC AT 5 LITER, TO TAPER IT TOLERATED PER MD INSTRUCTION, PATIENT RESPIRATIONS EVEN AND UNLABORED. MID LINE ORDER AWAITING FOR PICC LINE NURSE. ALERT X2, REQUIRE ASSISTANCE WITH ADLS, OBSERVED WITH DISCOLORATION IN UPPER ARMS, HD CATHETER ON RU LEG, MONITORING FOR ANY CHANGES, FOR HD ETIENNE AM , CONSENT SIGNED, WILL MONITOR AND CONTINUE CARE. RECEIVED ENDORSEMENT FROM AM RN FOR JUS.
--- NOTE | 2020-04-03 20:30 | NUR ---
MS/RN NOTES BLADDER DISTENDED, RETENTION OF URINE IDENTIFIED VIA BLADDER SCAN OF 479 ML, WITH ORDER FOR URINE CATHETER AND TO CLARIFY IF MD WILL ORDER HENRIQUEZ CATHETER INSTEAD IN AM. PATIENT AGREED AND TOLERATED PROCEDURE.
--- NOTE | 2020-04-03 22:59 | NUR ---
PER MD PETER TO USE STRAIGHT CATHETHER AT THIS TIME FOR BLADDER RETENTION TO AVOID ANY TYPE OF INFECTION.
[2020-04-04] MEDS: METOPROLOL TARTRATE 25 MG TABLET PO SCH ×4 (05:18→23:01)
--- NOTE | 2020-04-04 06:50 | NUR ---
309-1 MS/RN NOTES PATIENT ABLE TO SLEEP DURING THE NIGHT, ON OXYGEN VIA NC AT 5 LITER WITH OXYGENATION OF 94%, ALERT, ORIENTED X3 ABLE TO VERBALIZE NEEDS, ATTENDED TO ALL NEEDS, KEPT COMFORTABLE. BED LOCKED, CALL LIGHTS WITHIN REACH. MONITORED URINE OUTPUT AND ORAL INTAKE. WILL ENDORSE TO AM RN FOR JUS.
[2020-04-04 07:06] LABS: *SPE A/G RATIO 0.6 (0.7-1.7); *SPE ALBUMIN 1.8 g/dL (2.9-4.4); *SPE ALPHA-1-GLOBULIN 0.5 g/dL (0.0-0.4); *SPE BETA GLOBULIN 1.1 g/dL (0.7-1.3); *SPE GLOBULIN, TOTAL 3.2 g/dL (2.2-3.9); *SPE M-SPIKE Not Observed g/dL (Not Observed); *SPEGAMMA GLOBULIN 0.6 g/dL (0.4-1.8)
[2020-04-04 08:00] VITALS: BP 100/57
[2020-04-04 08:37] LABS: BASOPHILS % (AUTO) 0.7 % (0.0-2.0); EOSINOPHILS % (AUTO) 0.3 % (0.0-6.0); HEMATOCRIT 27 % (33-45); HEMOGLOBIN 8.9 g/dL (11.5-14.8); LYMPHOCYTES # (AUTO) 0.8 /CMM (0.8-4.8); LYMPHOCYTES % (AUTO) 12.9 % (20.0-44.0); MEAN CORPUSCULAR HGB CONC 34 g/dl (31.0-36.0); MEAN CORPUSCULAR VOLUME 94 fL (82-100); MONOCYTES # (AUTO) 0.4 /CMM (0.1-1.30); MONOCYTES % (AUTO) 7.1 % (2.0-12.0); NEUTROPHILS # (AUTO) 4.6 /CMM (1.8-8.9); PLATELET COUNT (AUTO) 322 /CMM (150-450); RED BLOOD CELL COUNT(AUTO) 2.82 MIL/uL (4.0-5.2); WHITE BLOOD COUNT (AUTO) 5.8 K/uL (4.3-11.0)
[2020-04-04 08:42] LABS: CARBON DIOXIDE 24 mmol/L (21-32); CHLORIDE 98 mmol/L (98-107); CREATININE 6.9 mg/dL (0.6-1.3); GLUCOSE 85 mg/dL (74-106); MAGNESIUM 1.9 mg/dL (1.8-2.4); POTASSIUM 5.8 mmol/L (3.5-5.1); SODIUM SERUM 132 mmol/L (136-145); UREA NITROGEN, BLOOD 51 mg/dL (7-18)
[2020-04-04] MEDS: HEPARIN SODIUM, PORCINE 5000 UNITS/1 ML VIAL SQ SCH ×2 (09:00→16:15)
--- NOTE | 2020-04-04 09:01 | NUR ---
HD stopped due to cath malfunctioning. No output
[2020-04-04] MEDS: PREGABALIN 25 MG CAPSULE PO SCH ×3 (09:28→16:14)
[2020-04-04] MEDS: FOLIC ACID 1 MG TABLET PO SCH (09:29)
[2020-04-04] MEDS: buPROPion SR 150 MG TABLET.ER PO SCH (09:29)
[2020-04-04] MEDS: PANTOPRAZOLE 40 MG TABLET.DR PO SCH (09:29)
[2020-04-04] MEDS: ANASTROZOLE 1 MG TABLET PO SCH (09:30)
[2020-04-04] MEDS: Z GUARD REMEDY 2 OZ OINT TP SCH (09:30)
[2020-04-04] MEDS: TRAMADOL HCL 50 MG TABLET PO PRN (09:40)
[2020-04-04] MEDS: LEVOTHYROXINE SODIUM 50 MCG TABLET PO SCH (10:34)
--- NOTE | 2020-04-04 15:37 | NUR ---
Report given to Laurie SLADE for JUS
--- NOTE | 2020-04-04 15:37 | NUR ---
Per patient may have midline
[2020-04-04 16:00] VITALS: BP 112/69
--- NOTE | 2020-04-04 18:30 | NUR ---
RN CLOSING NOTE Patient is resting in bed, A/O x2, showing no signs of acute distress or SOB, saturating 94% on 5L NC. BRAD midline noted running NS @ 100ml/hour. right groin HD cath noted. Aime Olivo will change HD cath in the morning. All patient needs met, all due medications given. Bed is in lowest position, side rails x3 in upright position, call light is within reach, fall safety and aspiration precautions enforced. WIll endorse to police shift commander.
--- NOTE | 2020-04-04 19:32 | NUR ---
MS RN OPENING NOTES PATIENT RECEIVED RESTING IN BED COMFORTABLY; A/OX2; BREATHING EVEN AND UNLABORED; PATIENT TOLERATING 2L NC WELL; NO SOB NOTED; R UA MIDLINE INTACT AND PATENT; INFUSING NS @100ML/HR; PATIENT TOLERATING IVF WELL; R FEMORAL ZOE IN PLACE, PER AM SHIFT, DIALYSIS NURSE REPORTED HAVING TROUBLE; DR. ARUNA CAMPOS AWARE AND WILL ASSESS IN AM; SAFETY PRECAUTIONS IMPLEMENTED; BED LOCKED IN LOW POSITION; SIDE RAILS X2; CALL LIGHT WITHIN REACH; WILL CONT TO MONITOR
[2020-04-04 20:00] VITALS: BP 129/69
[2020-04-04 20:08] VITALS: BP 129/69
[2020-04-05] VITALS (8 sets, daily range): BP systolic 102–153; BP diastolic 43–88
[2020-04-05] MEDS: METOPROLOL TARTRATE 25 MG TABLET PO SCH ×3 (05:01→17:43)
--- NOTE | 2020-04-05 06:53 | NUR ---
MS RN CLOSING NOTES PATIENT RESTING IN BED COMFORTABLY; BREATHING EVEN AND UNLABORED; PATIENT ON 5L NC, TOLERATING WELL; NO SOB NOTED; PATIENT A/OX2; BRAD MIDLINE INFUSING NS @ 100ML/HR; PATIENT TOLERATING IVF WELL; DR. ARUNA CAMPOS WILL ASSESS HD SITE TODAY; BP MEDS GIVEN THIS SHIFT, NO HYPOTENSION NOTED; WILL INFORM DAY SHIFT; ALL NEEDS RENDERED; SAFETY PRECAUTIONS IMPLEMENTED; BED LOCKED IN LOW POSITION; SIDE RAILS X2; CALL LIGHT WITHIN REACH; WILL ENDORSE JUS TO ONCOMING SHIFT
--- NOTE | 2020-04-05 07:37 | NUR ---
MS RN OPENING NOTE PATIENT IN BED RESTING COMFORTABLY. PATIENT IN NO ACUTE DISTRESS. NO SOB NOTED. PATIENT BREATHING IS EVEN AND UNLABORED. PATIENT STATES NO PAIN AT THIS TIME. SAFETY PRECAUTIONS IN PLACE. BED ALARM IS ON. PATIENT BED IS LOCKED AND IN LOWEST POSITION. CALL LIGHT WITHIN REACH. WILL CONTINUE TO MONITOR.
[2020-04-05 08:05] LABS: CALCIUM, SERUM 7.7 mg/dL (8.5-10.1); CARBON DIOXIDE 21 mmol/L (21-32); CHLORIDE 100 mmol/L (98-107); CREATININE 6.4 mg/dL (0.6-1.3); GLUCOSE 86 mg/dL (74-106); POTASSIUM 5.2 mmol/L (3.5-5.1); SODIUM SERUM 133 mmol/L (136-145); UREA NITROGEN, BLOOD 51 mg/dL (7-18)
[2020-04-05] MEDS: HEPARIN SODIUM, PORCINE 5000 UNITS/1 ML VIAL SQ SCH ×2 (08:30→16:31)
--- NOTE | 2020-04-05 08:31 | NUR ---
MS RN NOTE PATIENT REFUSING LOVENOX 0900 DOSE. EXPLAINED RISKS VS BENEFITS. PATIENT CONTINUED TO REFUSE. Addendum: 04/05/20 at 0837 by TORIBIO DAIGLE RN MS RN NOTE PATIENT REFUSING HEPARIN 0900 DOSE. NO LOVENOX SCHEDULED. EXPLAINED RISKS VS BENEFITS. PATIENT CONTINUED TO REFUSE.
[2020-04-05] MEDS: PREGABALIN 25 MG CAPSULE PO SCH ×3 (08:39→17:50)
[2020-04-05] MEDS: FOLIC ACID 1 MG TABLET PO SCH (08:39)
[2020-04-05] MEDS: buPROPion SR 150 MG TABLET.ER PO SCH (08:39)
[2020-04-05] MEDS: ANASTROZOLE 1 MG TABLET PO SCH (08:39)
[2020-04-05] MEDS: PANTOPRAZOLE 40 MG TABLET.DR PO SCH (08:39)
[2020-04-05] MEDS: Z GUARD REMEDY 2 OZ OINT TP SCH (08:40)
[2020-04-05] MEDS: LEVOTHYROXINE SODIUM 50 MCG TABLET PO SCH (08:40)
[2020-04-05] MEDS: FLUCONAZOLE (100 MG) 100 MG TABLET PO SCH (09:25)
--- NOTE | 2020-04-05 10:37 | NUR ---
MS RN NOTE PATIENT HEMODIALYSIS CATHETER PLACEMENT IN LEFT THIGH PLACED BY ARUNA CAMPOS. PATIENT TOLERATED WELL. RIGHT THIGH HEMODIALYSIS CATHETER NOT WORKING PER ARUNA CAMPOS. PATIENT IN NO ACUTE DISTRESS. WILL CONTINUE TO MONITOR.
--- NOTE | 2020-04-05 12:41 | NUR ---
MS RN NOTE PATIENT HAS BEEN RECEIVING ORAL FLUIDS. PATIENT IS A DIALYSIS PATIENT AND FLUIDS ON HOLD AT THIS TIME PER CHARGE NURSE PONCE.
--- NOTE | 2020-04-05 16:32 | NUR ---
MS RN NOTE PATIENT REFUSING HEPARIN 1700 DOSE ORDERED. EXPLAINED RISKS VS BENEFITS. PATIENT CONTINUED TO REFUSE.
--- NOTE | 2020-04-05 17:44 | NUR ---
MS RN NOTE HELD LOPRESSOR 1800 DOSE ORDERED DUE TO PATIENT CURRENTLY UNDERGOING DIALYSIS AT THIS TIME.
--- NOTE | 2020-04-05 17:57 | NUR ---
MS RN NOTE SPOKE WITH KEEGAN GOINS, AND PER KEEGAN RIBEIRO IV FLUIDS AT THIS TIME.
--- NOTE | 2020-04-05 18:10 | NUR ---
MS RN NOTE ORDER FROM ARUNA CAMPOS FOR RETURNED ITEM CLERK TO REMOVE RIGHT HD CATH THAT IS NO LONGER PATENT AND INTACT. DURING DIALYSIS SHARON RN REMOVED RIGHT HD CATH AND PATIENT BEGAN TO BLEED EXCESSIVELY. BLOOD SOAKED UP ONE BOX OF 4X4 GAUZE AND PARTIALLY BLED ON GOWN. PRESSURE WAS APPLIED WITH EXCESSIVE 4X4 GAUZE. MICROFOLD DRESSING IS APPLIED WITH PRESSURE DRESSING AND APPLIED WEIGHT ON TOP. BLEEDING IS CONTROLLED AT THIS TIME, NO BLEEDING NOTED AT THIS TIME. PATIENT BLOOD PRESSURE IS 102/43, NEXT 5 MINS WAS 133/56, AND THEN 5 MINS AFTER 121/44. CBC WAS ORDERED STAT. ARUNA CAMPOS WAS NOTIFIED AND MADE AWARE. PER ARUNA CAMPOS KEEP PATIENT WITH 4X4 GAUZE AND PRESSURE DRESSING AND WEIGHT. UNCOVER PATIENT FOR INSPECTION OF ANY BLEEDING. AND KEEP PATIENT WITH SITTER FOR AT LEAST FOUR MORE HOURS.THEN CALL ARUNA CAMPOS IN 4 HOURS FOR UPDATE. WILL INFORM HEALTH EDITOR RN TO INFORM ARUNA. CHARGE NURSE PONCE AND TRANSPORTATION AIDE MAYELIN CAME AND ASSESSED PATIENT AND MADE AWARE. OR NURSE CAME AND ASSESSED PATIENT. PATIENT MAINTAINED ON A 1:1 SITTER TO MONITOR FOR BLEEDING.
[2020-04-05] MEDS ORDERED: LIDOCAINE 1%-EPI 1:100,000 20 ML VIAL ONE (18:23)
[2020-04-05] MEDS ORDERED: GELATIN SPONGE,ABSORBABLE 1 SPONGE SPONGE TP ONE (18:23)
[2020-04-05] MEDS ORDERED: CELLULOSE,OXIDIZED 1 PKT EACH MC PRN (18:30)
--- NOTE | 2020-04-05 19:05 | NUR ---
MS RN CLOSING NOTE PATIENT IN BED RESTING COMFORTABLY AT THIS TIME. PATIENT BREATHING IS EVEN AND UNLABORED. PATIENT IN NO ACUTE DISTRESS. NO SOB NOTED. PATIENT SKIN WARM AND DRY AT THIS TIME. PATIENT WITH NO SIGNS OR SYMPTOMS OF BLEEDING ON RIGHT THIGH FROM RIGHT HD CATH REMOVAL AT THIS TIME. PATIENT FINISHED HEMODIALYSIS AT THIS TIME, AND TOLERATED WELL. PATIENT WITH AND THEN DAUGHTER TO SEE PATIENT FOR DISCUSSION OF HOSPICE, CHARGE NURSE PONCE AWARE AND DR. BEJARANO IS AWARE. PATIENT WITH ONE TO ONE SITTER AT THIS TIME TO MONITOR FOR SIGNS AND SYMPTOMS OF BLEEDING. WEIGHT STILL APPLIED AND PRESSURE DRESSING STILL INTACT. PATIENT TURNED AND REPOSITIONED Q2H. ENDORSED TO FOLLOW UP WITH STAT CBC THAT WAS ORDERED. PATIENT BED IS LOCKED AND IN LOWEST POSITION. CALL LIGHT WITHIN REACH. WILL ENDORSE CARE TO PM SHIFT FOR JUS.
[2020-04-05 19:15] LABS: BASOPHILS # (AUTO) 0.1 /CMM (0.0-0.2); BASOPHILS % (AUTO) 1.5 % (0.0-2.0); EOSINOPHILS % (AUTO) 0.1 % (0.0-6.0); HEMATOCRIT 24 % (33-45); HEMOGLOBIN 7.9 g/dL (11.5-14.8); LYMPHOCYTES # (AUTO) 0.6 /CMM (0.8-4.8); LYMPHOCYTES % (AUTO) 9.4 % (20.0-44.0); MEAN CORPUSCULAR HGB CONC 33 g/dl (31.0-36.0); MEAN CORPUSCULAR VOLUME 94 fL (82-100); MONOCYTES # (AUTO) 0.1 /CMM (0.1-1.30); MONOCYTES % (AUTO) 2.1 % (2.0-12.0); NEUTROPHILS # (AUTO) 5.3 /CMM (1.8-8.9); NEUTROPHILS % (AUTO) 86.9 % (43.0-81.0); PLATELET COUNT (AUTO) 220 /CMM (150-450); RED BLOOD CELL COUNT(AUTO) 2.55 MIL/uL (4.0-5.2); WHITE BLOOD COUNT (AUTO) 6.1 K/uL (4.3-11.0)
--- NOTE | 2020-04-05 19:15 | NUR ---
MS RN OPENING NOTES PATIENT AWAKE IN BED. A/OX2-3. FAMILY PRESENT AT THE BEDSIDE. NO BLEEDING NOTED ON RIGHT FEMORAL AREA; PRESSURE DRESSING REMAINS DRY AND INTACT; WEIGHT APPLIED ON RIGHT FEMORAL AREA WITH 2 BAGS OF IV FLUID FOR ADDED PRESSURE; 1 ON 1 SITTER PRESENT AT THE BEDSIDE TO MONITOR FOR BLEEDING. NO S/S OF ACUTE RESPIRATORY DISTRESS; BREATHING IS EVEN AND UNLABORED. MIDLINE PRESENT ON RIGHT UPPER ARM, INTACT & PATENT HEP LOCKED. SAFETY MEASURES IN PLACE. BED LOCKED, ALARM ON, SIDE RAILS X2, CALL LIGHT WITHIN. WILL CONTINUE TO MONITOR PATIENT FOR ANY BLEEDING.
--- NOTE | 2020-04-05 20:00 | NUR ---
MS RN NOTES NO S/S OF BLEEDING NOTED. PRESSURE DRESSING REMAINS DRY AND INTACT; ADDED WEIGHT REMAINS IN PLACE ON RIGHT FEMORAL AREA. VITAL SIGNS- BP: 108/61 HR: 95 RR: 24 SPO2: 93%. 1 ON 1 SITTER REMAINS PRESENT AT THE BEDSIDE FOR CONTINUOUS MONITORING.
--- NOTE | 2020-04-05 20:12 | NUR ---
MS RN NOTES ARUNA CAMPOS MADE AWARE OF PATIENT'S CBC RESULTS. PER ANDRES, NO NEED FOR BLOOD TRANSFUSION.
--- NOTE | 2020-04-06 00:24 | NUR ---
MS RN NOTES PATIENT SENT TO RADIOLOGY FOR STAT CT OF ABDOMEN WITHOUT CONTRAST.
--- NOTE | 2020-04-06 00:34 | NUR ---
MS RN NOTES PATIENT BACK FROM CT
[2020-04-06 00:45] VITALS: BP 156/88
[2020-04-06] MEDS: METOPROLOL TARTRATE 25 MG TABLET PO SCH ×4 (00:48→17:05)
[2020-04-06 01:00] LABS: HEMOGLOBIN 8.4 g/dL (11.5-14.8)
[2020-04-06] MEDS ORDERED: MORPHINE SULFATE INJ 2 MG/ML DISP.SYRIN IV ONE (02:00)
[2020-04-06 07:20] LABS: BASOPHILS % (AUTO) 0.7 % (0.0-2.0); EOSINOPHILS % (AUTO) 0.3 % (0.0-6.0); HEMATOCRIT 24 % (33-45); HEMOGLOBIN 7.8 g/dL (11.5-14.8); LYMPHOCYTES # (AUTO) 0.7 /CMM (0.8-4.8); LYMPHOCYTES % (AUTO) 12.3 % (20.0-44.0); MEAN CORPUSCULAR HGB CONC 33 g/dl (31.0-36.0); MEAN CORPUSCULAR VOLUME 94 fL (82-100); MONOCYTES # (AUTO) 0.3 /CMM (0.1-1.30); MONOCYTES % (AUTO) 6.6 % (2.0-12.0); NEUTROPHILS # (AUTO) 4.2 /CMM (1.8-8.9); NEUTROPHILS % (AUTO) 80.1 % (43.0-81.0); PLATELET COUNT (AUTO) 200 /CMM (150-450); RED BLOOD CELL COUNT(AUTO) 2.54 MIL/uL (4.0-5.2); WHITE BLOOD COUNT (AUTO) 5.3 K/uL (4.3-11.0)
[2020-04-06] MEDS: LEVOTHYROXINE SODIUM 50 MCG TABLET PO SCH (07:30)
--- NOTE | 2020-04-06 07:40 | NUR ---
MS RN CLOSING NOTES PATIENT SLEEPING IN BED. A/OX2-3. ON 3L NC. NO S/S OF ACUTE RESPIRATORY DISTRESS; BREATHING IS EVEN AND UNLABORED. NO BLEEDING NOTED ON RIGHT FEMORAL AREA; PRESSURE DRESSING REMAINS DRY AND INTACT; 1 ON 1 SITTER PRESENT AT THE BEDSIDE TO MONITOR FOR BLEEDING. MIDLINE PRESENT ON RIGHT UPPER ARM, INTACT & PATENT HEP LOCKED. SAFETY MEASURES IN PLACE AND PATIENT'S NEEDS MET. BED LOCKED, ALARM ON, SIDE RAILS X2, CALL LIGHT WITHIN. WILL ENDORSE TO DAY SHIFT NURSE PLAN OF CARE.
[2020-04-06 07:41] LABS: CALCIUM, SERUM 7.8 mg/dL (8.5-10.1); CARBON DIOXIDE 25 mmol/L (21-32); CHLORIDE 104 mmol/L (98-107); GLUCOSE 85 mg/dL (74-106); MAGNESIUM 1.9 mg/dL (1.8-2.4); PHOSPHORUS 6.2 mg/dL (2.5-4.9); POTASSIUM 4.6 mmol/L (3.5-5.1); SODIUM SERUM 138 mmol/L (136-145); UREA NITROGEN, BLOOD 38 mg/dL (7-18)
[2020-04-06 08:00] VITALS: BP 106/54
--- NOTE | 2020-04-06 08:00 | NUR ---
rn notes received patient in the bed sleeping, arouse when called name or touched. Patient sedated, unable to administered scheduled medication, no acute respiratory distress, o2-2l 94 nc, iv access midline on right UA intact, v/s taken stable. Patient has PermCath on left groin intact, old dressing intact on right groin, no bleeding noted., incontinent using diaper, call light within to reach, assist turn and reposition q 2 hr. call light within to reach.
[2020-04-06] MEDS: ANASTROZOLE 1 MG TABLET PO SCH (09:00)
[2020-04-06] MEDS: FOLIC ACID 1 MG TABLET PO SCH (09:00)
[2020-04-06] MEDS: PREGABALIN 25 MG CAPSULE PO SCH ×3 (09:00→17:00)
[2020-04-06] MEDS: FLUCONAZOLE (100 MG) 100 MG TABLET PO SCH (09:00)
[2020-04-06] MEDS: buPROPion SR 150 MG TABLET.ER PO SCH (09:00)
[2020-04-06] MEDS: HEPARIN SODIUM, PORCINE 5000 UNITS/1 ML VIAL SQ SCH ×2 (09:00→17:00)
[2020-04-06] MEDS: PANTOPRAZOLE 40 MG TABLET.DR PO SCH (09:00)
[2020-04-06] MEDS: Z GUARD REMEDY 2 OZ OINT TP SCH (09:38)
--- NOTE | 2020-04-06 10:39 | NUR ---
RN NOTES SEEN PATIENT BY HOSPITALIST RE DNP PLAN IS HOSPICE CONSULT.
[2020-04-06 12:00] VITALS: BP 123/87
[2020-04-06] MEDS ORDERED: MICAFUNGIN SODIUM 100 MG in IV NS 0.9% 100 ML IV SCH (17:00)
--- NOTE | 2020-04-06 18:00 | NUR ---
RN NOTES PATIENT ON [facility]. HOSPITALIST AWARE OF DISCHARGE TO [facility].
--- NOTE | 2020-04-06 18:12 | NUR ---
rn notes patient on DNR/DNI continues comfort care, stop iv hydration, and medication, may have o2-2lnc, morphine sulfate iv drip 1mg/ml/hr, atiavan 1 mg ml iv push for q 4hrprn for temperature >100, , agitation temporal soft restrain, acetaminophen 650 mg prn rectal q 6 hr. order taken and carried out. Family next to the bed, call light within to reach. endorsed oncoming nurse follow plan of care.
--- NOTE | 2020-04-06 19:30 | NUR ---
RN MS OPENING NOTES RECEIVED PATIENT IN BED AWAKE ALERT X 1, RESPIRATION EVEN AND UNLABORED WITH EQUAL RISE AND FALL OF CHEST, AT THIS TIME APPEARS COMFORTABLE. BRAD MIDLINE INTACT, SITTER AT BEDSIDE .ALL NEEDS ATTENDED AT THIS TIME, WILL CONTINUE TO MONITOR AND FOLLOW MD ORDERS FOR ADMISSION TO [facility].
--- NOTE | 2020-04-06 19:56 | NUR ---
RN MS NOTES PER HOSPITALIST KEEGAN DISCHARGE TO [facility].
[2020-04-06] MEDS ORDERED: ACETAMINOPHEN 650 MG/SUPP.RECT RC PRN (20:30)
[2020-04-06] MEDS ORDERED: LORAZEPAM INJ 2 MG/ML VIAL IVP PRN (20:30)
== END 2020-04-06 20:19 | disposition hospice, inpatient (51) | DRG 177 ==
LOC: ER 18:58 → MED 21:07
PROVIDERS: ADMIT Internal Medicine; ATTEND Nurse Practitioner Acute Care
PROC: 0W9B3ZZ Drainage of Left Pleural Cavity, Percutaneous Approach (ICD-10-PCS; principal; 2020-03-29)
PROC: 06HM33Z Insertion of Infusion Device into Right Femoral Vein, Percutaneous Approach (ICD-10-PCS; 2020-04-03)
PROC: B54BZZA Ultrasonography of Right Lower Extremity Veins, Guidance (ICD-10-PCS; 2020-04-03)
PROC: 5A1D70Z Performance of Urinary Filtration, Intermittent, Less than 6 Hours Per Day (ICD-10-PCS; 2020-04-03)
PROC: 06HY33Z Insertion of Infusion Device into Lower Vein, Percutaneous Approach (ICD-10-PCS; 2020-04-05)
DX: J15.6 Pneumonia due to other Gram-negative bacteria (principal); J85.1 Abscess of lung with pneumonia; E43 Unspecified severe protein-calorie malnutrition; G93.41 Metabolic encephalopathy; I21.A1 Myocardial infarction type 2; N17.0 Acute kidney failure with tubular necrosis; J90 Pleural effusion, not elsewhere classified; E87.1 Hypo-osmolality and hyponatremia; J98.11 Atelectasis; K44.0 Diaphragmatic hernia with obstruction, without gangrene; I42.2 Other hypertrophic cardiomyopathy; B37.49 Other urogenital candidiasis; I10 Essential (primary) hypertension; K21.9 Gastro-esophageal reflux disease without esophagitis; M41.9 Scoliosis, unspecified; G89.4 Chronic pain syndrome; Z85.3 Personal history of malignant neoplasm of breast; Z88.1 Allergy status to other antibiotic agents; Z91.040 Latex allergy status; Z88.2 Allergy status to sulfonamides; Z91.018 Allergy to other foods; Z79.899 Other long term (current) drug therapy; K44.9 Diaphragmatic hernia without obstruction or gangrene; H91.90 Unspecified hearing loss, unspecified ear; E03.9 Hypothyroidism, unspecified; Z90.10 Acquired absence of unspecified breast and nipple; Z96.652 Presence of left artificial knee joint; Z90.710 Acquired absence of both cervix and uterus; Z98.890 Other specified postprocedural states; I87.2 Venous insufficiency (chronic) (peripheral); R33.9 Retention of urine, unspecified; J98.4 Other disorders of lung; I87.8 Other specified disorders of veins; I35.8 Other nonrheumatic aortic valve disorders; Z86.79 Personal history of other diseases of the circulatory system
CPT/HCPCS: 36415; 71045-TC; 71250-TC; 76770-TC; 80048-TC; 80053-TC; 80076-TC; 80202-TC; 81000-TC; 82436-TC; 82533; 82550-TC; 82570-TC; 83605-TC; 83735-TC; 83935-TC; 83970; 84100-TC; 84133-TC; 84155; 84155-TC; 84165; 84300-TC; 84443-TC; 84484-TC; 84550-TC; 85025-TC; 85027-TC; 85730-TC; 86706; 86803; 87040-TC; 87070-TC; 87075-TC; 87081-TC; 87086-TC; 87102-TC; 87340; 88108-TC; 88305-TC; 89051-TC; 90935-TC; 93307-TC; 97530-TC; A4216; A6253; C1750; G0378; J1644; J1650; J1956; J2248; J2270; J2274; J2543; J3370; J3490; J7030; J7040; J7060

== ENCOUNTER 2020-04-06 20:30 | Inpatient (IN) | payer OTHER ==
[~2020-04-06] VITALS: Ht 152.4 cm; Wt 57.6 kg
[2020-04-06 20:00] VITALS: BP 111/56
[~2020-04-06 20:30] MED LIST: AMLO5TAB4 PO; ANAS1TAB50 NG; BUPR100T6 PO; FOLI0.4T2 PO; LEVO25TA7 PO; METO100T14 PO; PALB75CA PO; PANT40TA2 PO; PREG50CA PO; ZOLP10TA2 PO
--- NOTE | 2020-04-06 20:30 | NUR ---
RN NOTES RECEIVED SUPERVISOR BLOOD PUMP AND MORPHINE MEDICATION FOR IV DRIP.
[2020-04-06 20:35] VITALS: BP 111/56
--- NOTE | 2020-04-06 20:35 | NUR ---
CUSTOMER ACCOUNT MANAGER NOTES PATIENT DISCHARGED FROM INPATIENT MED SURG AND TO BE ADMITTED IN [facility] WITH [facility]. ORDER RECEIVED FROM HOSPITALIST KEEGAN GOINS. NOTED AND CARRIED OUT. ADMITTING ORDERS NOTED, VERIFIED AND CARRIED OUT AND FAXED TO PHARMACY. NEW ORDERS ARE ADMIT TO [facility] DX ESRD DNR/DNI CALL [facility] FOR ANY CHANGES @[phone], CALL TO TITRATE MORPHINE DRIP DOSE PER TIMBER SPRINKLER NO MAX RATE GIVEN WHEN CALLED TO CLARIFY. D/C PREVIOUS ORAL AND IV MEDS D/C HYDRATION MAY HAVE OXYGEN AT 2L/MIN VIA NASAL CANNULA CONTINUOUS FRO COMFORT/SOB MORPHINE SULFATE IV DRIP 1MG/HR CONTINUOUS. ATIVAN 1MG IV PUSH EVERY 4 HOURS PRN FOR AGITATION / TERMINAL RESTLESSNESS. ACETAMINOPHEN SUPP. 650MG PER RECTUM Q 6HRS PRN FOR TEMP >100.
[2020-04-06] MEDS ORDERED: KEY,NONCONTROL,TO KEEP IN PYXI 1 EA MC ONE (20:58)
[2020-04-06] MEDS ORDERED: LORAZEPAM INJ 2 MG/ML VIAL IV PRN (21:00)
[2020-04-06] MEDS ORDERED: ACETAMINOPHEN 650 MG/SUPP.RECT RC PRN ×2 (21:00)
[2020-04-06] MEDS ORDERED: LORAZEPAM INJ 2 MG/ML VIAL IVP PRN (21:00)
--- NOTE | 2020-04-06 21:15 | NUR ---
RN NOTES MORPHINE DRIP ORDERS CLARIFIED WITH PHARMACIST, RECEIVED NEW STICKER TO INFUSE MEDICATION. HEATING AND REFRIGERATION INSPECTOR PUMP SET UP WITNESSED AND VERIFIED WITH CHARGE NURSE. MORPHINE IV DRIP STARTED AT THIS TIME ORDERED. 1MG/HR INFUSING. CURRENT VITAL SIGNS.111/56, 95, 18 ON 2 L VIA NC, AFEBRILE 98.7,96%. REMAINS COMFORTABLE AT THIS TIME, WILL CONTINUE TO MONITOR.
[2020-04-07 04:01] VITALS: BP 129/79
--- NOTE | 2020-04-07 05:07 | NUR ---
RN NOTES CALLED [facility] TO CLARIFY FOR DIET PER [facility] STAFF WILL CALL BACK TO CLARIFY IF NPO STATUS OR NOT.
--- NOTE | 2020-04-07 06:14 | NUR ---
FIRER BOILER CARE CLOSING NOTES PATIENT IN BED SLEEPING AROUSABLE TO TOUCH AT THIS TIME, OPEN EYES. REMAINED AFEBRILE THIS THROUGHOUT SHIFT. 0N 2 L VIA NC FOR COMFORT NO RESPIRATORY DISTRESS PRESENT AT THIS TIME, MORPHINE DRIP RUNNING ORDERED 1MG/HR APPEARS TO BE EFFECTIVE, REMAINED COMFORTABLE THROUGHOUT THE SHIFT, PATIENT REPOSITIONED FOR COMFORT.BRAD MIDLINE INTACT AND PATENT, NO REDNESS, NO INFILTRATION PRESENT. HEELS OFFLOADED, DOES NOT APPEAR RESTLESSNESS AT THIS TIME, ALL NEEDS WERE ATTENDED REMAINS COMFORTABLE WILL CONTINUE TO MONITOR AND ENDORSE TO NEXT SHIFT. PER HOSPICE WILL CALL BACK TO CLARIFY NPO STATUS
--- NOTE | 2020-04-07 07:30 | NUR ---
RN NOTES PT IN BED, ASLEEP, EASY TO AROUSE, NO SIGN OF PAIN OR DISTRESS, CALL LIGHT WITHIN REACH, ON MORPHINE DRIP AT 1MG/HR, KEPT PT WARM AND COMFORTABLE IN BED, REPOSITIONED FOR COMFORT.
[2020-04-07 08:00] VITALS: BP 131/61
--- NOTE | 2020-04-07 14:29 | NUR ---
RN NOTES PT SEEN BY DR. GOINS, DAUGHTER AT BEDSIDE, PLAN OF CARE DISCUSSED WITH DAUGHTER, VERBALIZED UNDERSTANDING, VT MD MAY TITRATE MORPHINE DRIP TO 2MG/HR, NOTED AND CARRIED OUT.
[2020-04-07 16:00] VITALS: BP 80/42
--- NOTE | 2020-04-07 18:09 | NUR ---
RN NOTES PT IN BED, RESTING, WITH EYES CLOSED, NO SIGN OF PAIN, NOT IN DISTRESS, ON O2 AT 2LPM VIA N/C, WITH O2 SAT OF 98%, ON MORPINE DRIP AT 2MG/HR, VISITED BY HOSPICE NURSE, PM CARE PROVIDED, REPOSITIONED FOR COMFORT, KEPT GROUP SEGMENT CONSULTANT BED.
--- NOTE | 2020-04-07 19:10 | NUR ---
RN NOTES: RECEIVED AWAKE WITH HER GRANDDAUGHTER BESIDE HER, A/O BUT LOOKS CONFUSE, SHE IS RESTLESS UPON ENDORSEMENT, SHE HAS MORPHINE DRIP ONGOING AT 2ML/HR,BRAD MIDLINE INTACT AND PATENT, ON 02 AT 2-3L/MIN. SHE IS UNDER [facility], FALL,SAFETY AND ASPIRATION PRECAUTION OBSERVED, CALL LIGHT KEPT WITHIN EASY REACH.
--- NOTE | 2020-04-07 19:20 | NUR ---
RN NOTES: SHE IS MORE RESTLESS AND HER BREATHING IS INCREASE,LOOKS ANXIOUS AND IN PAIN, SHE WAS GIVEN ATIVAN BY OUTGOING SHIFT, EXPLAINED TO HER GRANDDAUGHTER WILL WAIT A LITTLE AND SHE WILL CALM DOWN.
[2020-04-07 20:00] VITALS: BP 90/41
--- NOTE | 2020-04-07 20:39 | NUR ---
RN NOTES: LOOKS COMFORTABLE AND ASLEEP, NO PAIN OR DISCOMFORT NOTED, NOT GRIMACING NOR RESTLESS, HER GRANDDAUGHTER SADA JUST LEFT AND INSTRUCT US TO LET HER KNOW IF THERE IS ANY CHANGE OF CONDITION.
--- NOTE | 2020-04-07 21:03 | NUR ---
RN NOTES: ON CLOSE FREQUENT CHECKED, ASLEEP, NON LABORED BREATHING, MORPHINE DRIP ONGOING, KEPT ON CLOSE WATCH.
[2020-04-07] MEDS ORDERED: KEY,NONCONTROL,TO KEEP IN PYXI 1 EA MC ONE (21:20)
--- NOTE | 2020-04-08 02:00 | NUR ---
RN NOTES: MORPHINE DRIP ONGOING AT 2ML/HR, KEPT ON CLOSE WATCH, NO PAIN OR DISCOMFORT ASLEEP.
--- NOTE | 2020-04-08 03:33 | NUR ---
RN NOTES: ASLEEP, NON LABORED BREATHING, ABLE TO DRAIN SECRETION, KEPT ON SIDE LYING POSITION.
--- NOTE | 2020-04-08 05:00 | NUR ---
RN NOTES: NON LABORED BREATHING RR-12-13/MIN, LOOKS COMFORTABLE, NO PAIN, NO FACIAL GRIMACE NOTED.
--- NOTE | 2020-04-08 06:50 | NUR ---
RN NOTES: GASPING STATE, PERIODS OF APNEA NOTED, SHE HAS MOTTLING ON THE RIGHT AND LEFT HAND, ALSO STARTING ON RIGHT AND LEFT FOOT, REMAINS COMFORTABLE, MORPHINE DRIP CONTINUE, ENDORSED FOR CONTINUITY OF CARE. CALLED GRANDDAUGHTER SADA AND NOTIFY TO COME IF SHES ABLE BECAUSE HER GRANDMA STARTS TO DETERIORATE, BETTER IF SHE CAN COME NOW..
--- NOTE | 2020-04-08 07:25 | NUR ---
MS/RN Pronounced Patient found without heartbeat, respirations, unable to feel any pulses. Pupils fixed and dilated. Pronounced at 0720.
--- NOTE | 2020-04-08 07:26 | NUR ---
MS/RN Change in condition Family contacted at 0727 to inform that patient's condition was declining, stated that they would be coming to the hospital.
--- NOTE | 2020-04-08 07:29 | NUR ---
[facility], spoke to Dilcia to inform of patient's . Per Dilcia, need to call back when ready for mortuary to be contacted.
--- NOTE | 2020-04-08 07:38 | NUR ---
MS/RN [facility] at 0737, spoke with Maxine, patient declined for organ/tissue donation. -[phone]
--- NOTE | 2020-04-08 07:42 | NUR ---
RN NOTES: RIGHT AFTER THE ENDORSEMENT, NOTED PATIENT BREATHING IS ABSENT, NO MORE RISE AND FALL OF THE ABDOMEN, FAINT CAROTID PULSE STARTED TO FAINT UNTIL WE ARE NOT ABLE TO PALPATE IT ANYMORE AT 0720,INCOMING RN NOTIFY HOSPICE, SADA GRANDDAUGHTER WAS CALLED AGAIN AND NOTIFIED.
--- NOTE | 2020-04-08 08:08 | NUR ---
MS/client services coordinator Family at bedside, all questions answered, left alone to spend time with patient.
--- NOTE | 2020-04-08 09:52 | NUR ---
[facility] [place] [facility]. All paperwork signed, client care representative made aware and shown that patient has gold colored ring with three white stones on left hand as this is unable to be removed. Family also aware. All other personal belongings returned to patient's . All questions answered, told to call back with any other concerns should they arise. Patient left unit at [phone].
== END 2020-04-08 07:14 | disposition expired | DRG 177 ==
LOC: HOSPICE 20:30
PROVIDERS: ADMIT Internal Medicine; ATTEND Internal Medicine
PROC: 05HY33Z Insertion of Infusion Device into Upper Vein, Percutaneous Approach (ICD-10-PCS; principal; 2020-04-06)
DX: J86.9 Pyothorax without fistula (principal); J96.00 Acute respiratory failure, unspecified whether with hypoxia or hypercapnia; J18.9 Pneumonia, unspecified organism; I21.A1 Myocardial infarction type 2; N18.6 End stage renal disease; G93.41 Metabolic encephalopathy; E43 Unspecified severe protein-calorie malnutrition; N17.0 Acute kidney failure with tubular necrosis; J90 Pleural effusion, not elsewhere classified; I12.0 Hypertensive chronic kidney disease with stage 5 chronic kidney disease or end stage renal disease; E87.1 Hypo-osmolality and hyponatremia; J91.8 Pleural effusion in other conditions classified elsewhere; B37.49 Other urogenital candidiasis; Z51.5 Encounter for palliative care; Z66 Do not resuscitate; G89.4 Chronic pain syndrome; M41.9 Scoliosis, unspecified; K44.9 Diaphragmatic hernia without obstruction or gangrene; K21.9 Gastro-esophageal reflux disease without esophagitis; Z90.710 Acquired absence of both cervix and uterus; Z85.3 Personal history of malignant neoplasm of breast; Z96.659 Presence of unspecified artificial knee joint; J98.4 Other disorders of lung; Z98.890 Other specified postprocedural states; Z79.899 Other long term (current) drug therapy; Z79.811 Long term (current) use of aromatase inhibitors; C50.919 Malignant neoplasm of unspecified site of unspecified female breast; I87.2 Venous insufficiency (chronic) (peripheral); I95.9 Hypotension, unspecified; H91.90 Unspecified hearing loss, unspecified ear; I51.7 Cardiomegaly
CPT/HCPCS: G0378; J2060; J2274; J7050; J7060